=== PATIENT | female | born 1995 | race Caucasian/White ===

== ENCOUNTER 2022-12-04 13:29 | Outpatient (CLI) | payer OTHER, SELFPAY ==
[2022-12-09 11:26] LABS: Prolactin 147.2 ng/mL (***); Testosterone Total 93 ng/dL (2-45)
== END 2022-12-04 13:30 | disposition home or self-care (01) ==
LOC: ANHLAB 13:30
PROVIDERS: PCP Pediatrics; Visit Provider Obstetrics & Gynecology
DX: N92.6 Irregular menstruation, unspecified (principal)
CPT/HCPCS: 36415; 84146; 84403; 84443

== ENCOUNTER 2022-12-18 14:02 | Outpatient (CLI) | payer OTHER, SELFPAY ==
[2022-12-21 13:13] LABS: Prolactin 18.6 ng/mL (***)
== END 2022-12-18 14:03 | disposition home or self-care (01) ==
PROVIDERS: PCP Registered Nurse; Visit Provider Obstetrics & Gynecology
DX: N93.9 Abnormal uterine and vaginal bleeding, unspecified (principal)
CPT/HCPCS: 36415; 84146

== ENCOUNTER 2023-07-15 13:13 | Outpatient (CLI) | payer OTHER, SELFPAY ==
--- NOTE | ~2023-07-15 | US_ITS ---
EXAMINATION: US pelvic complete w TV DATE: 07/15/2023 13:46 INDICATION: Postcoital bleeding. Evaluate IUD. TECHNIQUE: Multiple transabdominal and endovaginal sonographic images of the pelvis were obtained. COMPARISON: None. FINDINGS: The uterus measures 7.7 x 3.1 x 2.6 cm. The endometrial complex measures 5 mm in thickness. Linear s haped and shadowing IUD in expected position within the endometrial canal. There are scattered hypere choic and shadowing calcifications likely atherosclerotic at the periphery of the uterine fundus and likely dystrophic along the endometrial complex at the lower uterine segment. 3 mm anechoic nabothian cyst at the cervix. The right ovary measures 3.8 x 1.9 x 2.3 cm. The left ovary measures 3.4 x 1.6 x 1.7 cm. Vascular flow identified at both ovaries on color Doppler. There are few small anechoic foll icles at both ovaries with a larger 1.5 cm cyst versus dominant follicle at the right ovary. There is no free fluid in the pelvis. IMPRESSION: 1. IUD in expected position within the endometrial canal. Reviewed, dictated and finalized at location A.
== END 2023-07-15 13:14 ==
LOC: GOSHIMG 13:14
PROVIDERS: PCP Registered Nurse; Visit Provider Obstetrics & Gynecology
DX: Z30.431 Encounter for routine checking of intrauterine contraceptive device (principal)
CPT/HCPCS: 76830; 76856

== ENCOUNTER 2024-01-13 07:50 | Outpatient (CLI) | payer OTHER, SELFPAY ==
[2024-02-01 12:21] VITALS: BMI 36.9
--- NOTE | 2024-02-01 12:21 | P.SLEEP_ITS ---
Sleep Study - Home Unattended Date of Study: 01/13/24 Ordering Provider: Betzy Mcmahan MD Interpreting Provider: Allison Quintero, DO Home Sleep Study Type: Watch PAT Height: 1.68 m Weight: 103.873 kg Body Mass Index: 36.9 Neck Circumference (inches): 14.75 [place]: 12 Reason for Sleep Study Excessive daytime sleepiness Sleep History The patient is a 28-year-old female that had a sleep study ordered by her lmonologist for evaluation of sleep apnea.? The patient denies awakening from sleep short of breath.? She denies awakening at night with heartburn, belching or cough.? She frequently snores and it is frequently loud enough that others complain.? She denies having trouble sleeping when she has a cold.? She denies waking up gasping for air throughout the night.? She frequently has breathing problems at night observed by herself or others.? She frequently sweats excessively at night.? She denies having heart palpitations or irregular heartbeats during the night.? She constantly falls asleep during the day but rarely while driving.? She denies sleep paralysis, cataplexy and hypnagogic/hypnopompic hallucinations.? She frequently has trouble at school or work due to sleepiness.? She denies feeling afraid of going to sleep.? She occasionally has nightmares.? She frequently remembers her dreams.? She rarely has thoughts racing through her mind.? She rarely feels sad or depressed.? She occasionally has anxiety.? She denies having muscular tension.? She occasionally notices parts of her body jerk.? She rarely kicks during the night.? She denies having crawling and aching feelings in her legs and denies having leg pain during the night.? She denies grinding her teeth during sleep and denies awakening with morning jaw pain.? She denies being bothered by pain during the day and denies being awakened by pain during the night.? She denies waking up feeling stiff in the morning.? She denies waking up with sore or achy muscles.? She denies waking up with pain in the neck, spine and other joints.? She goes to bed at 9:00 p.m. on both weekdays and weekends.? It takes her 15-20 minutes to fall asleep.? She wakes up once throughout the night at most for unknown reasons and it can take 10-30 minutes to fall back asleep.? She wakes up at 4:20 a.m. on weekdays and at 6:00 a.m. on the weekends.? She typically gets 8-10 hours of sleep per night.? She stays in bed for 10-15 minutes after waking up in the morning.? She currently lives with her boyfriend.? She denies consuming any caffeinated beverages within 2 hours of bedtime.? She will engage in physical exercise before bedtime.? She denies reading before falling asleep.? She will watch television before falling asleep.? She will take naps in the afternoon or the evening but they are not refreshing.? She consumes 3 caffeinated beverages per day.? She quit smoking cigarettes.? She denies alcohol and recreational drug use. [facility] Past Medical History Medical History Acute anxiety Bipolar 1 disorder Depression Encounter for IUD insertion June 2022 insertion Pectus excavatum surgery 2010 Family History Family History Other Acute anxiety Breast cancer Depression Hypertension Social History Social History Smoking status: Never smoker Alcohol intake: never Substance use: never Substance use type: does not use Lack of Transportation: No Lack of Food: Never True Current Housing: I Have Housing Concerned About Future Housing: No Difficulty Paying Gas/Electric Bills: No Difficulty Paying for Meds: No Currently Unemployed: No Education: High School Diploma/GED Difficulty w/ Childcare or Family Care: No Living arrangements: with family Occupation/Education: occupation Gender identity (if verbalized by the patient): Female Sexual Orientation (if Verbalized by the Patient): Straight or Heterosexual Medications Home Medications Medication Instructions Recorded Confirmed Type sertraline 100 mg tablet mg 01/05/19 09/23/23 History buspirone 15 mg tablet 15 mg PO BID 12/03/22 09/23/23 History norethindrone 1.5 mg-ethinyl 1 tablet PO DAILY #28 tabs 03/26/23 09/23/23 Rx estradiol 30 mcg(21)/iron 75 mg(7) tablet (Loestrin Fe 1.5/30 (28-Day)) cariprazine 3 mg capsule (Vraylar) 3 mg PO QHS 09/23/23 09/23/23 History lamotrigine 200 mg tablet 200 mg PO DAILY 09/23/23 09/23/23 History venlafaxine 150 mg 150 mg PO DAILY 09/23/23 09/23/23 History capsule,extended release 24 hr Sleep Procedure The sleep study was completed using MarqueeT a technically adequate device with seven channels: peripheral arterial tone, actigraphy, body position, snore, respiratory movement, pulse oximetry, sleep staging, and heart rate. Prior to using the device, the patient received verbal and written instructions for its application and was provided with the help desk phone number for additional telephonic instruction with 24-hour availability of qualified personnel to an swer questions. The study was scored using CMS guidelines. Sleep Architecture The total recording time is 7 hrs, 34 min. The total sleep time is 6 hrs, 18 min. Sleep latency is 22 minutes. REM latency is 244 minutes. The patient had 9 episodes of waking. Sleep architecture shows 16.5% deep sleep, 71.5% light sleep, and (as % Total Sleep Time) showed NREM (Light 71.5%; Deep 16.5%), and a 12.0% stage REM. The patient spent 32.3% of total sleep time in the supine position. Sleep efficiency was 83.26. Respiratory Analysis The overall AHI (pAHI 4%:) is 7.6. The central AHI is 3.0. The AHI was 8.2 in NREM and 2.7 in REM sleep. The AHI was 5.5 in Supine and 8.6 in Non-supine sleep. Percent of [place] respirations is 0.0. Oximetry Data The oxygen desaturation index (ANABELLE 4%:) is 7.1. The mean saturation is 94%, and the lowest saturation is 87%. Time spent with saturation < 88% is 0.1 minutes. Snoring Profile Snoring average intensity is 40 dB. The patient snored above 45 decibels for 8.7 minutes, 2.3% of sleep time. Cardiac Profile The average pulse rate is 90 beats per minutes. The lowest pulse rate is 70 bpm. The highest pulse rate reported is 158 bpm. Atrial fibrillation was not detected. Premature beats occur <0.1 per minute. Assessment and Plan Assessment and Plan (1) ROBYN (obstructive sleep apnea): Code(s): G47.33 - Obstructive sleep apnea (adult) (pediatric) Status: Acute Assessment and Plan: The patient had an overall AHI of 7.6 with desaturation down to 87%. This is consistent with mild sleep apnea. Due to the patient's anxiety and depression, she qualifies for treatment. I recommend that the patient be prescribed Resmed AutoPAP 5-15 cm H2O, CPAP mask/filters/tubing and heated humidity. This should be used with all episodes of sleep.? Compliance should be reviewed within 31-90 days of starting therapy for usage greater than 4 hours per night greater than 70% of the nights. The patient should be asked about symptoms such as?excessive daytime sleepiness, quality of sleep, decreased nocturia, increased?mental functioning such as memory, mood, and concentration. Data The data obtained during this sleep study is adequate for interpretation. Certification This sleep study has been reviewed by a board certified sleep medicine physician.
== END 2024-01-14 10:41 | disposition home or self-care (01) ==
LOC: ANHCSM 07:50
PROVIDERS: PCP Registered Nurse; Visit Provider Internal Medicine Critical Care Medicine
DX: G47.10 Hypersomnia, unspecified (principal); G47.33 Obstructive sleep apnea (adult) (pediatric)
CPT/HCPCS: 95800